=== PATIENT | male | born 1980 | race Caucasian/White ===

== ENCOUNTER 2021-10-17 09:20 | Emergency (ER) | payer OTHER ==
[~2021-10-17] VITALS: Ht 177.8 cm; Wt 100.0 kg
[2021-10-17 09:50] VITALS: BP 121/68
[2021-10-17] MEDS ORDERED: OFLO5DRO7 AD (10:08)
--- NOTE | 2021-10-17 10:11 | PHYS DOC ---
Past History Past Medical History: No Pertinent History (MAYUR ANGEL DO) Past Surgical History: No Surgical History (MAYUR ANGEL DO) Alcohol Use: Rarely (POLLY KING APRN) Smoking: Non-smoker Alcohol Use: Rarely Drug Use: None (MAYUR ANGEL DO) General Adult EDM: Chief Complaint: EARACHE/EAR PAIN HPI: HPI: Patient is a 40-year-old male who presents to the emergency department for right ear pain that started 2 weeks ago. Patient reports that his has been sick with a mild cold. He states that he has had a slight nonproductive cough and some congestion. He denies any fevers, difficulty hearing. (POLLY KING APRN) Review of Systems: Review of Systems: Constitutional: negative unless reported in HPI Eyes: negative unless reported in HPI HENT: negative unless reported in HPI Respiratory: negative unless reported in HPI Cardiovascular: negative unless reported in HPI GI: negative unless reported in HPI : negative unless reported in HPI Musculoskeletal: negative unless reported in HPI Integument: negative unless reported in HPI Neurologic: negative unless reported in HPI Endocrine: negative unless reported in HPI Lymphatic: negative unless reported in HPI Psychiatric: negative unless reported in HPI (POLLY KING APRN) Physical Exam: PE: Constitutional: Well developed, well nourished, no acute distress, non-toxic appearance. [] HENT: Normocephalic, atraumatic, bilateral external ears normal, mild swelling of right ear canal with erythema noted, tympanic membrane is intact. Oropharynx moist, no oral exudates, nose normal. [] Eyes: PERRL, EOMI, conjunctiva normal, no discharge. [] Neck: Normal range of motion, no stridor Cardiovascular: Normal peripheral perfusion Lungs & Thorax: Normal work of breathing, no tachypnea Abdomen: Soft and flat Skin: Warm, dry, no erythema, no rash. [] Back: No tenderness, no CVA tenderness. [] Extremities: No tenderness, no cyanosis, no clubbing, ROM intact, no edema. [] Neurologic: Alert and oriented X 3, normal motor function, normal sensory function, no focal deficits noted. [] Psychologic: Affect normal, judgement normal, mood normal. [] (POLLY KING APRN) EKG: EKG: [] (POLLY KING APRN) Radiology/Procedures: Radiology/Procedures: [] (POLLY KING APRN) Heart Score: C/O Chest Pain: N/A Risk Factors: Risk Factors: DM, Current or recent (<one month) smoker, HTN, HLP, family history of CAD, obesity. Risk Scores: Score 0 - 3: 2.5% MACE over next 6 weeks - Discharge Home Score 4 - 6: 20.3% MACE over next 6 weeks - Admit for Clinical Observation Score 7 - 10: 72.7% MACE over next 6 weeks - Early Invasive Strategies (POLLY KING APRN) Course & Med Decision Making: Course & Med Decision Making Pertinent Labs and Imaging studies reviewed. (See chart for details) [] Patient presents to the emergency department for a 2-week history of right ear pain. Upon physical exam, it appears that patient has a outer ear infection which will be treated with antibiotic eardrops. Patient advised to take Tylenol and ibuprofen. I discussed with patient all findings and diagnostic testing as well as the need to follow-up with PCP for further evaluation and treatment or return to the ER if any new or worsening symptoms. Strict return precautions were also discussed at length. Patient voiced understanding and agreement with the plan. Patient is hemodynamically stable at the time of disposition. (POLLY KING APRN) Dragon Disclaimer: Dragon Disclaimer: This electronic medical record was generated, in whole or in part, using a voice recognition dictation system. (POLLY KING APRN) Departure Departure: Impression: Primary Impression: Otitis externa Qualified Codes: H60.501 - Unspecified acute noninfective otitis externa, right ear Disposition: HOME / SELF CARE / HOMELESS Condition: GOOD Referrals: CHRISTOS HOLLAND DO, MPH (PCP) Patient Instructions: Otitis Externa Additional Instructions: You were seen in the emergency department today for right ear pain. You appear to have a outer ear infection which will be treated with these antibiotic eardrops. Please use these as directed. He can take Tylenol and/or ibuprofen for your pain. Follow-up with your primary care provider on Tuesday regarding your ER visit. Return to the emergency department if you develop worsening of your pain, hearing loss, high fevers refractory to treatment, difficulty swallowing or breathing, intractable nausea or vomiting. Scripts Ofloxacin (OFLOXACIN) 5 Ml Drops 5 DROP AD BID for otitis externa for 10 Days, #5 ML 0 Refills Prov: POLLY KING TUBE INSPECTOR 10/17/21 Attending Signature Attending Signature I have reviewed the PA/INSIDE TESTER's note and plan of care. I was available for consul tation as needed during the patient's visit in the emergency department. I agree with the clinical impression, plan, and disposition. (MAYUR ANGEL DO) POLLY KING APRN Oct 17, 2021 10:11 MAYUR ANGEL DO Oct 18, 2021 01:22
== END 2021-10-17 10:38 | disposition home or self-care (01) ==
LOC: ER 09:30
DX: H60.501 Unspecified acute noninfective otitis externa, right ear (principal)
CPT/HCPCS: 99283